=== PATIENT | female | born 1995 ===

== ENCOUNTER → 2021-04-26 | Outpatient (CLI) | payer BC ==
--- NOTE | 2021-04-26 09:16 | Diagnostic Imaging Report ---
INDICATION: RIGHT THYROID NODULE TECHNIQUE: Grayscale sonographic images of the thyroid gland. CORRELATION STUDY: None FINDINGS: RIGHT LOBE: Enlarged, 5.1 x 1.9 x 2.0 cm. Within the central aspect is a fairly well-circumscribed hypoechoic, solid mass. Margins are fairly well-defined but there does appear to be presence of some microcalcifications. Internal vascularity. This measures 1.9 x 1.4 x 1.2 cm. LEFT LOBE: 4.2 x 1.2 x 1.6 cm. There is normal echotexture about the left lobe. Isthmus appears unremarkable. IMPRESSION: Solitary nearly 2 cm right thyroid mass. Given size and appearance, at least a TR 4 lesion. Fine-needle aspiration/biopsy recommended. Dictated by: Dictated on workstation # [id number]
== END ==
LOC: RAD 08:30
PROVIDERS: ATTEND Family Medicine
DX: E04.1 Nontoxic single thyroid nodule (principal)
CPT/HCPCS: 76536

== ENCOUNTER → 2021-05-06 | Outpatient (CLI) | payer BC ==
[~2021-05-06] VITALS: Ht 175.3 cm; Wt 101.4 kg
[~2021-05-06] MED LIST: LIDOCAINE 1% INJ 20 ML 20 ML VIAL INJ ONE
--- NOTE | 2021-05-06 10:17 | Diagnostic Imaging Report ---
INDICATION: Right thyroid nodule. Patient presents for ultrasound-guided fine-needle aspiration and biopsy. Patient brought to the procedure room placed on table in the supine position. Ultrasound imaging of the right neck was performed to evaluate appropriate entry site. A right neck was then prepped and draped in usual sterile fashion. Small amount 1% lidocaine was utilized for local anesthesia. A total of 4 passes were made into the solid hypoechoic nodule in the right lobe of the thyroid utilizing 25-gauge needles and fine-needle aspiration technique. A single pass was made with a Rotex needle. A Rotex biopsy was performed. [place] were removed and hemostasis was obtained. Patient tolerated the procedure well and left the department in stable condition. IMPRESSION: Successful ultrasound guided fine needle aspiration and Rotex biopsy of right lobe thyroid nodule. Pathology results are currently pending. Dictated by: Dictated on workstation # [id number]
== END ==
LOC: RAD 08:30
PROVIDERS: ATTEND Family Medicine
DX: E04.1 Nontoxic single thyroid nodule (principal)
CPT/HCPCS: 10005